=== PATIENT | male | born 1955 | race American Indian/Alaskan Native ===

== ENCOUNTER 2016-12-26 22:04 | Inpatient (IN) | payer SELFPAY ==
[2016-12-26] MEDS ORDERED: NARCAN 0.4 MG/1 ML ONE (22:27)
[2016-12-26 22:28] LABS: Hematocrit 44.1 % (35.5-45.6); Hemoglobin 13.9 gm/dl (11.8-15.2); Mean Corpuscular HGB Conc 31 % (32-34); Mean Corpuscular Hemoglobin 26 pg (28-32); Mean Corpuscular Volume 84 fl (84-94); Platelet Count 242 K/mm3 (140-440); Red Blood Count 5.27 M/mm3 (3.65-5.03); Red Cell Distribution Width 13.4 % (13.2-15.2); White Blood Count 16.1 K/mm3 (4.5-11.0)
[2016-12-26 22:41] LABS: INR 1.17 (0.87-1.13)
[2016-12-26 22:42] LABS: Partial Thromboplastin Time 24.3 Sec. (24.2-36.6)
[2016-12-26 22:48] LABS: Creatine Kinase MB 3.2 ng/mL (0.0-4.0)
[2016-12-26 22:51] LABS: Alanine Aminotransferase 70 units/L (7-56); Albumin 4.3 g/dL (3.9-5); Albumin/Globulin Ratio 1.9 %; Alkaline Phosphatase 75 units/L (35-129); BUN/Creatinine Ratio 15.83; Bilirubin,Total 0.2 mg/dL (0.1-1.2); Blood Urea Nitrogen 19 mg/dL (9-20); Calcium 8.5 mg/dL (8.4-10.2); Carbon Dioxide 23 mmol/L (22-30); Chloride 101.6 mmol/L (98-107); Creatine Kinase 185 units/L (55-170); Glucose 299 mg/dL (75-100); Potassium 4.6 mmol/L (3.6-5.0); Sodium 141 mmol/L (137-145); Total Protein 6.6 g/dL (6.3-8.2)
[2016-12-26] MEDS ORDERED: MAGNESIUM SULFATE 2GM/50ML 50 ML IV ONE (22:57)
[2016-12-26 22:59] LABS: Anion Gap 21 mmol/L
[2016-12-26 23:00] LABS: Basophils % (Manual) 0 % (0.0-1.8); Blastocytes % (Manual) 0 %; Eosinophils % (Manual) 0 % (0.0-4.3)
--- NOTE | 2016-12-26 23:00 | Emergency Department Report ---
HPI - General Chief Complaint: Overdose Time Seen by Provider: 12/26/16 22:11 - HPI HPI: This is a 61-year-old Afro-Ecuadorean male presents to the emergency department by EMS with what appears to be some altered mental status and possible respiratory distress. Allegedly the patient walked into another room in the house that he stays in and mentioned to a roommate that he was having trouble breathing before he collapsed. EMS got there and gave him some oxygen and tried some Narcan but did not get any response. At first is that he was breathing only a few times a minute but after the Narcan he began breathing very rapidly and appearing to be in more respiratory distress. Patient was mostly unresponsive at first but about 10 minutes into his ER visit he became awake and more alert. He admits to smoking crack earlier tonight. He does not realize that he passed out for 20 or 30 minutes. He currently denies any significant complaints. When asked if he has shortness of breath he says "sometimes." He denies any known diagnosed history of asthma or COPD but says "I think I probably have something like that." He is a tobacco smoker. No recent travel or sick contacts at home. He does not have a primary care doctor. ED Past Medical Hx - Past Medical History Previous Medical History?: Yes Hx Hypertension: Yes (states takes no medication for HTN) - Surgical History Past Surgical History?: Yes Additional Surgical History: left shoulder - Social History Smoking Status: Current Every Day Smoker Substance Use Type: Alcohol, Cocaine - Medications Home Medications: Home Medications Medication Instructions Recorded Confirmed Last Taken Type No Known Home Medications [No 12/27/16 12/27/16 Unknown History Reported Home Medications] ED Review of Systems ROS: Stated complaint: POSSIBLE STROKE Other details as noted in HPI Comment: Unobtainable due to pts medical conditions Respiratory: shortness of breath Neurological: confusion Physical Exam - Physical Exam Vital Signs: Vital Signs 12/26/16 12/26/16 22:13 22:31 Temperature 98.9 F Pulse Rate 111 H 115 H Respiratory 33 H 34 H Rate Blood Pressure 159/93 Blood Pressure 172/103 [Left] O2 Sat by Pulse 99 99 Oximetry Physical Exam: GENERAL: Patient is ill-appearing and unresponsive. HEENT: Normocephalic. Atraumatic. Pupils are sluggish to respond but equal. Patient has moist mucous membranes. NECK: Supple. Trachea is midline. CHEST/LUNGS: Moderate to severe wheezing throughout the chest. There is tachypnea and accessory muscle use. Patient appears in respiratory distress respiratory distress. HEART/CARDIOVASCULAR: Regular. There is mild tachycardia. There is no gallop rub or murmur. ABDOMEN: Abdomen is soft. Patient has normal bowel sounds. There is no abdominal distention. SKIN: Skin is warm and dry. NEURO: Patient is unresponsive to even painful stimuli. He does have a gag reflex. MUSCULOSKELETAL: There is no deformity. There is no evidence of acute injury. ED Course Vital Signs 12/26/16 12/26/16 22:13 22:31 Temperature 98.9 F Pulse Rate 111 H 115 H Respiratory 33 H 34 H Rate Blood Pressure 159/93 Blood Pressure 172/103 [Left] O2 Sat by Pulse 99 99 Oximetry ED Medical Decision Making - Lab Data Result diagrams: 12/26/16 22:00 12/26/16 22:00 - EKG Data -: EKG Interpreted by Me EKG shows normal: sinus rhythm, axis, intervals, QRS complexes, ST-T waves ( there is some nonspecific ST elevation to the anterior and lateral leads that appear consistent with early repolarization. No reciprocal depressions and no signs of ST elevation [place].) Rate: normal - EKG Data When compared to previous EKG there are: previous EKG unavailable - Radiology Data Radiology results: report reviewed, image reviewed interpreted by me: Chest x-ray did not show any acute process. Heart is normal shape and size. No effusions. No pneumothorax. No signs of pneumonia seen. CT of the head does not show any acute process including no hemorrhage, mass, shift, diffuse edema or skull fracture. - Medical Decision Making 61-year-old male presents in respiratory distress and unresponsive after complaining of shortness of breath to his roommate and collapsing. Patient was evaluated soon as he came in by EMS and the plan was going to be to intubate this patient. While the intubation supplies and our psychiatric were being obtained the patient was started on a DuoNeb treatment secondary to his significant bronchospasm. As soon as his treatment began the patient all of a sudden became awake and much more alert. At this point he began to have less of a respiratory distress and intubation was held off. He was reevaluated multiple times and each time his respiratory status appears to be improved and he is currently AAO 3. The patient admits to crack cocaine smoking. He presents with some elevated blood pressure and required 1 dose of hydralazine. He does have some tachycardia. Patient's labs include a negative troponin and negative d-dimer. He does have a lactic acidosis. There is some hyperglycemia but no signs of DKA or HHNK. He was given Solu-Medrol, magnesium. EKG did not show any signs of ST elevation [place]. There is some nonspecific ST elevations in the anterior to the lateral leads but there are no cervical depressions. This could be early repolarization. Pericarditis is possible but there is no depression and it is not global on the EKG. Chest x-ray does not show any pneumonia, pneumothorax, pleural effusions or any acute process. CT of the head does not show any bleed, shift, mass or any acute cranial process. Patient is feeling improved. However since the patient had a unresponsive and altered mental status episode of 30-40 minutes and has this elevated lactic acidosis with such significant bronchospasm and to begin with, the patient will be admitted to hospital for further evaluation and has been accepted for admission by the hospitalist, Dr. Garnett. - Differential Diagnosis CVA, substance abuse, PE, TX, pneumonia Critical Care Time: No Critical care attestation.: If time is entered above; I have spent that time in minutes in the direct care of this critically ill patient, excluding procedure time. ED Disposition Clinical Impression: Bronchospasm, Lactic acidosis Altered mental status Qualifiers: Altered mental status type: unspecified Qualified Code(s): R41.82 - Altered mental status, unspecified Crack cocaine overdose Qualifiers: Encounter type: initial encounter Injury intent: accidental or unintentional Qualified Code(s): T40.5X1A - Poisoning by cocaine, accidental (unintentional), initial encounter Dyspnea Qualifiers: Dyspnea type: unspecified Qualified Code(s): R06.00 - Dyspnea, unspecified Disposition: OP ADMITTED IP TO THIS HOSP Is pt being admited?: Yes Does the pt Need Aspirin: Yes Condition: Stable Time of Disposition: 01:30
[2016-12-26 23:01] LABS: Urine Drugs of Abuse Note Disclamer
[2016-12-26 23:02] LABS: Anisocytosis 1+; Diff Status Complete; Elliptocytes Few
[2016-12-26 23:11] LABS: Bacteria,Urine 1+ /HPF (Negative); Bilirubin,Urine NEG (Negative); Blood,Urine SM (Negative); Ketones,Urine NEG (Negative); Leukocyte Esterase,Urine NEG (Negative); Mucus,Urine 2+ /HPF; Nitrite,Urine NEG (Negative); Sperm,Urine 3+ /HPF (NP); Urobilinogen,Urine < 2.0 mg/dL (<2.0)
[2016-12-26] MEDS ORDERED: APRESOLINE IV ONE (23:25)
--- NOTE | 2016-12-27 00:34 | Cat Scan Report ---
FINAL REPORT EXAM: CT HEAD/BRAIN WO CON HISTORY: AMS COMPARISON: None available. TECHNIQUE: Axial images obtained skull base through vertex. FINDINGS: No acute intracranial hemorrhage, midline shift or pathologic extra axial fluid collection. Ventricles and cisterns are normal in size and configuration for the patient's age. Cheney-white differentiation preserved. Calvarium grossly intact. Mild mucosal thickening the paranasal sinuses. Mastoid air cells are clear. Visualized orbits are grossly unremarkable. IMPRESSION: No grossly acute intracranial abnormality.
[2016-12-27] MEDS ORDERED: BABY ASPIRIN PO ONE (01:31)
[2016-12-27 01:52] LABS: ISTAT Base Excess -2; ISTAT PCO2 39.7 (35-45); ISTAT PH 7.371 (7.35-7.45); ISTAT PO2 62 (80-105); ISTAT SO2 91; ISTAT TCO2 24
--- NOTE | 2016-12-27 02:05 | Admit Criteria Form ---
Admission Criteria Documentation: DRUG INGESTION OR OVERDOSE Clinical Indications for Admission to Inpatient Care ( Place 'X' for any and all applicable criteria): Admission is indicated for severe toxicity as indicated by ANY ONE of the following(1)(2)(3)(4)(5)(6): [ X]I. Inpatient admission required rather than observation care (Also use Drug Ingestion or Overdose: Observation Care guideline as appropriate) because of ANY ONE of the following: [ ]a) Altered mental status that is severe or persistent [ X]b) Clinical finding (eg, metabolic acidosis, hypoglycemia, bradycardia) that is severe or persistent [ ]c) Toxic drug level that is persistent [ ]d) Psychiatric risk status not acceptable for outpatient management [ ]e) Continuous intravenous infusion of anticoagulation, platelet inhibitor, vasoactive, or antiarrhythmic medication (15)(16) [ ]f) Other condition, treatment or monitoring requiring inpatient admission [ ]II. Respiratory abnormalities [ ]III. Specific finding indicating severe and likely prolonged drug toxicity [ ]IV. Hemodynamic instability [ ]V. Dangerous arrhythmia [ ]. Hypertension requiring inpatient treatment Extended stay beyond goal length of stay may be needed for (4): [ ]a) Neurologic or respiratory compromise [ ]b) Hemodynamic instability [ ]c) Persistent toxic drug levels (25) [ ]d) Severe drug toxicities or complications [ ]e) Ongoing antidote treatment (eg, acetaminophen overdose)(5) [ ]f) Older patients(65 years or older) The original [facility] content created by [employer] has been revised. The portions of the content which have been revised are identified through the use of italic text or in bold, and [facility] has neither reviewed nor approved the modified material. All other unmodified content is copyright [facility] [employer]. Please see references footnoted in the original [facility] [employer] edition 2016 Admission Criteria Met: Yes
--- NOTE | 2016-12-27 02:42 | History and Physical Report ---
History of Present Illness Date of examination: 12/27/16 History of present illness: 61-year-old man with a history of hypertension states he has been having upper respiratory tract infection for the last 2 weeks. He was seen at [facility] and was given 4 pills for his lungs, eye symptoms did not improve so he went back and he got steroid shot plus pills for. Been having a cough productive of yellow whitish phlegm. Yesterday he did crack cocaine, shortly after he complaining of shortness of breath and passed out, it's unclear how long he syncopized Patient denies chest pain, palpitation, cough, abdominal pain, hematochezia, dysuria, frequency, focal weakness, dysarthria, fever chills, polydipsia polyuria, hot or cold intolerance, easy bruisability, or rash or bleeding from mucosal membrane, rhinorrhea, epistaxis, earache, tinnitus, blurry vision, eye discharge, anxiety, depression. Other review of systems negative PAST SURGICAL HISTORY: Right shoulder SOCIAL HISTORY: Crack, cocaine use, no tobacco, no alcohol FAMILY HISTORY: Hypertension Medications and Allergies Allergies Allergy/AdvReac Type Severity Reaction Status Date / Time No Known Allergies Allergy Unverified 12/26/16 22:22 Home Medications Medication Instructions Recorded Confirmed Last Taken Type No Known Home Medications [No 12/27/16 12/27/16 Unknown History Reported Home Medications] Exam - Physical Exam Narrative exam: Gen. appearance: Patient lying in bed, no apparent distress HEENT: Normocephalic, atraumatic, pupils equally round and reactive to light, extraocular movement intact, and no sclericterus,. No JVD or thyromegaly or nodule,neck supple, no carotid bruit ,mucous membranes moist, no exudate or erythema Heart: S1, S2, regular rate and rhythm Lungs: Rhonchi bilaterally, breathing comfortable Abdomen: Positive bowel sounds, nontender, nondistended, no organomegaly Extremity: No edema, cyanosis, clubbing Skin: No rash, nodules, warm, dry Neuro: Oriented 3, cranial nerves II-12 intact, speech is fluent, motor and sensory intact - Constitutional Vitals: Temp Pulse Resp BP Pulse Ox 98.7 F 85 20 137/94 97 12/26/16 23:22 12/27/16 01:00 12/27/16 01:00 12/27/16 01:00 12/27/16 01:00 Results - Labs CBC & Chem 7: 12/26/16 22:00 12/26/16 22:00 Labs: Abnormal lab results 12/26/16 12/26/16 12/26/16 Range/Units 22:00 22:00 22:00 WBC 16.1 H (4.5-11.0) K/mm3 RBC 5.27 H (3.65-5.03) M/mm3 MCH 26 L (28-32) pg MCHC 31 L (32-34) % Seg Neuts % (Manual) 39.0 L (40.0-70.0) % Lymphocytes % (Manual) 49.0 H (13.4-35.0) % Monocytes % (Manual) 10.0 H (0.0-7.3) % Lymphocytes # (Manual) 7.9 H (1.2-5.4) K/mm3 Monocytes # (Manual) 1.6 H (0.0-0.8) K/mm3 INR 1.17 H (0.87-1.13) POC ABG pO2 (80-105) Glucose 299 H (75-100) mg/dL Lactic Acid (0.7-2.0) mmol/L AST 125 H (5-40) units/L ALT 70 H (7-56) units/L Total Creatine Kinase 185 H (55-170) units/L 12/26/16 12/27/16 Range/Units 22:00 01:46 WBC (4.5-11.0) K/mm3 RBC (3.65-5.03) M/mm3 MCH (28-32) pg MCHC (32-34) % Seg Neuts % (Manual) (40.0-70.0) % Lymphocytes % (Manual) (13.4-35.0) % Monocytes % (Manual) (0.0-7.3) % Lymphocytes # (Manual) (1.2-5.4) K/mm3 Monocytes # (Manual) (0.0-0.8) K/mm3 INR (0.87-1.13) POC ABG pO2 62 L (80-105) Glucose (75-100) mg/dL Lactic Acid 6.5 H* (0.7-2.0) mmol/L AST (5-40) units/L ALT (7-56) units/L Total Creatine Kinase (55-170) units/L - Imaging and Cardiology EKG: image reviewed Chest x-ray: image reviewed CT Scan - head: report reviewed Assessment and Plan Crack cocaine overdose Syncope Acute bronchitis Hypertension uncontrolled Admits medicine Start IV high-dose steroids, nebulizer treatments Check cardiac enzymes, echo, consult cardiology Start IV hydralazine as needed for blood pressure control Start DVT prophylaxis
[2016-12-27] MEDS ORDERED: APRESOLINE IV PRN (03:20)
--- NOTE | 2016-12-27 10:45 | XRay Report ---
AP CHEST :12/26/16 22:04:00 CLINICAL: Difficulty breathing. COMPARISON:None. FINDINGS: Normal heart and pulmonary vasculature. Mild aortic tortuosity. The lungs are mildly hyperexpanded and hyperlucent. No airspace disease or pleural effusion. The bones and soft tissues are normal. IMPRESSION: Mild COPD.
[2016-12-27] MEDS ORDERED: PERCOCET 5/325 PO PRN (13:17)
[2016-12-27] MEDS ORDERED: ZOFRAN IV PRN (13:17)
[2016-12-27] MEDS ORDERED: TYLENOL PO PRN (13:17)
[2016-12-27] MEDS ORDERED: DULCOLAX PR PRN (13:17)
[2016-12-27] MEDS ORDERED: MILK OF MAGNESIA PO PRN (14:29)
[2016-12-27] MEDS: LEVAQUIN 750MG/150ML 750 MG/150 ML BAG IV SCH (16:23)
--- NOTE | 2016-12-27 16:52 | Consultation ---
History of Present Illness Consult date: 12/27/16 Requesting physician: KARAN GARNETT Consult reason: syncope History of present illness: The patient is a 61 year old male with a history of hypertension who presented following a syncopal episode at home. He states that he has had a cough and been short of breath for the past 2 weeks. He was treated with antibiotics and steroids at [place]. He denies any chest pain, palpitations, orthopnea or fever. Yesterday he was at home watching TV when he became very short of breath and then collapsed. According to ER documentation, when EMS arrived the administered oxygen and Narcan but did not get any response. Upon arrival to the ER, he was mostly unresponsive at first but after about 10 minutes he became awake and more alert. In the ER he admitted to smoking crack earlier in the day. Currently he states that he feels fine. Past History Past Medical History: hypertension Past Surgical History: appendectomy Social history: denies: alcohol abuse, prescription drug abuse, IV drug use Family history: no significant family history Medications and Allergies Allergies Allergy/AdvReac Type Severity Reaction Status Date / Time No Known Allergies Allergy Unverified 12/26/16 22:22 Home Medications Medication Instructions Recorded Confirmed Last Taken Type No Known Home Medications [No 12/27/16 12/27/16 Unknown History Reported Home Medications] Active Meds: Active Medications Acetaminophen (Tylenol) 650 mg PO Q4H PRN PRN Reason: Pain MILD(1-3)/Fever >100.5/URIBE Bisacodyl (Dulcolax) 10 mg ND QDAY PRN PRN Reason: Constipation unrelieved by MOM Hydralazine HCl (Apresoline) 5 mg IV Q6HR PRN PRN Reason: Hypertension Levofloxacin/Dextrose (Levaquin 750mg/150ml) 750 mg in 150 mls @ 150 mls/hr IV Q24H [facility] Last Admin: 12/27/16 16:23 Dose: 150 mls/hr Magnesium Hydroxide (Milk Of Magnesia) 30 ml PO Q4H PRN PRN Reason: Constipation Methylprednisolone Sodium Succinate (Solu-Medrol) 125 mg IV Q6H [facility] Last Admin: 12/27/16 16:23 Dose: 125 mg Ondansetron HCl (Zofran) 4 mg IV Q8H PRN PRN Reason: N/V unrelieved by Reglan Oxycodone/Acetaminophen (Percocet 5/325) 1 tab PO Q6H PRN PRN Reason: Pain, Moderate (4-6) Review of Systems Constitutional: no fever, no chills Ears, nose, mouth and throat: no nasal congestion, no nasal discharge, no sinus pressure Cardiovascular: syncope, shortness of breath, no chest pain, no orthopnea, no palpitations Respiratory: cough, shortness of breath Gastrointestinal: no abdominal pain, no nausea, no vomiting, no diarrhea Genitourinary Male: no dysuria, no hematuria Musculoskeletal: no neck stiffness, no neck pain, no myalgias Integumentary: no rash, no pruritis Neurological: syncope, no parathesias, no numbness, no tingling Endocrine: no cold intolerance, no heat intolerance Hematologic/Lymphatic: no easy bruising, no easy bleeding Allergic/Immunologic: no urticaria, no wheezing Physical Examination Vital Signs Pulse Resp BP Pulse Ox 111 H 33 H 159/93 99 12/26/16 22:13 12/26/16 22:13 12/26/16 22:13 12/26/16 22:13 General appearance: no acute distress HEENT: Positive: Normocephaly, Mucus Membranes Moist Neck: Positive: neck supple, trachea midline Cardiac: Positive: Reg Rate and Rhythm, S1/S2 Lungs: Positive: clear to auscultation Neuro: Positive: Grossly Intact Abdomen: Positive: Soft, Active Bowel Sounds. Negative: Tender Skin: Positive: Clear. Negative: Rash Extremities: Present: normal. Absent: edema Results 12/26/16 22:00 12/26/16 22:00 - Imaging and Cardiology Echo: report reviewed (12/2016: normal LV function ) EKG: image reviewed EKG interpretations - Telemetry EKG Rhythm: Sinus Rhythm - EKG Sinus rhythms and dysrhythmias: sinus rhythm Repolarization changes or abnormalities: early repolarization (normal variant) Assessment and Plan Syncope head CT negative troponin negative Echo: normal LV function no arrhythmias noted on the monitor Elevated d-dimer recommend chest CTA to r/o PE Leukocytosis Hypertension Cocaine abuse Stable cardiac status. Given elevated d-dimer, recommend chest CTA to r/o PE. The patient has been seen in conjunction with Dr. Cobian who agrees with the assessment and plan of care. Thank you Dr. Garnett for allowing us to participate in the care of this patient.
[2016-12-27 22:46] LABS: Creatine Kinase 163 units/L (55-170)
[2016-12-28 06:15] LABS: Basophils % (Auto) 0.1 % (0.0-1.8); Hemoglobin 14.6 gm/dl (11.8-15.2); Mean Corpuscular HGB Conc 32 % (32-34); Mean Corpuscular Hemoglobin 27 pg (28-32); Mean Corpuscular Volume 82 fl (84-94); Platelet Count 224 K/mm3 (140-440); Red Cell Distribution Width 13.1 % (13.2-15.2); White Blood Count 7.7 K/mm3 (4.5-11.0)
[2016-12-28 06:31] LABS: Blood Urea Nitrogen 18 mg/dL (9-20); Calcium 9.1 mg/dL (8.4-10.2); Carbon Dioxide 23 mmol/L (22-30); Chloride 103.6 mmol/L (98-107); Glucose 174 mg/dL (75-100); Potassium 4.3 mmol/L (3.6-5.0); Sodium 140 mmol/L (137-145)
[2016-12-28 06:34] LABS: Anion Gap 18 mmol/L
--- NOTE | 2016-12-28 10:31 | Progress Note ---
Assessment and Plan Syncope head CT negative troponin negative Echo: normal LV function no arrhythmias noted on the monitor Elevated d-dimer recommend chest CTA to r/o PE Leukocytosis Hypertension Cocaine abuse Stable cardiac status. Given elevated d-dimer, recommend chest CTA to r/o PE. The patient has been seen in conjunction with Dr. Cobian who agrees with the assessment and plan of care. Subjective Date of service: 12/28/16 Principal diagnosis: syncope Interval history: The patient is resting in bed. No new complaints. Sinus rhythm on the monitor. Objective Last Vital Signs Temp 98.3 F 12/28/16 04:52 Pulse 88 12/28/16 04:52 Resp 18 12/28/16 04:52 BP 156/111 12/28/16 04:52 Pulse Ox 98 12/28/16 08:35 - Physical Examination General: No Apparent Distress HEENT: Positive: Normocephaly, Mucus Membranes Moist Neck: Positive: neck supple, trachea midline Cardiac: Positive: Reg Rate and Rhythm, S1/S2 Lungs: Positive: clear to auscultation Neuro: Positive: Grossly Intact Abdomen: Positive: Soft, Active Bowel Sounds. Negative: Tender Skin: Positive: Clear. Negative: Rash Extremities: Present: normal. Absent: edema - Labs and Meds Cardiac Enzymes 12/27/16 Range/Units 21:48 CK-MB (CK-2) 4.0 (0.0-4.0) ng/mL CBC 12/28/16 Range/Units 05:46 WBC 7.7 (4.5-11.0) K/mm3 RBC 5.50 H (3.65-5.03) M/mm3 Hgb 14.6 (11.8-15.2) gm/dl Hct 45.0 (35.5-45.6) % Plt Count 224 (140-440) K/mm3 Lymph # 1.3 (1.2-5.4) K/mm3 [place] # 0.1 (0.0-0.8) K/mm3 Eos # 0.0 (0.0-0.4) K/mm3 Baso # 0.0 (0.0-0.1) K/mm3 Comprehensive Metabolic Panel 12/28/16 Range/Units 05:46 Sodium 140 (137-145) mmol/L Potassium 4.3 (3.6-5.0) mmol/L Chloride 103.6 (98-107) mmol/L Carbon Dioxide 23 (22-30) mmol/L BUN 18 (9-20) mg/dL Creatinine 0.9 (0.8-1.5) mg/dL Glucose 174 H (75-100) mg/dL Calcium 9.1 (8.4-10.2) mg/dL - Imaging and Cardiology EKG: image reviewed Echo: report reviewed (12/2016: normal LV function ) - Telemetry EKG Rhythm: Sinus Rhythm - EKG Sinus rhythms and dysrhythmias: sinus rhythm Repolarization changes or abnormalities: early repolarization (normal variant)
[2016-12-28 12:07] VITALS: BP 136/81
--- NOTE | 2016-12-28 12:23 | Discharge Summary ---
Providers - Providers Date of Admission: 12/27/16 03:21 Attending physician: AARON GUARDADO 12/27/16 13:17 Consult to Physician [CONS] Routine Consulting Provider: ADIS LUO Reason For Exam: syncope Notified:: city secretary pl call Primary care physician: BREANNE YIP MD Hospitalization Condition: Stable Disposition: STILL A PATIENT Exam - Constitutional Vitals: Temp Pulse Resp BP Pulse Ox 97.5 F L 84 20 136/81 98 12/28/16 08:15 12/28/16 08:15 12/28/16 08:15 12/28/16 08:15 12/28/16 08:35 Plan Follow up with: PRIMARY MD PHI [Primary Care Provider] - 3-5 Days
[2016-12-28] MEDS ORDERED: NACL ONE (13:46)
--- NOTE | 2016-12-28 14:41 | Cat Scan Report ---
CTA CHEST: History: Dyspnea. Technique: Helical CT following IV contrast. Pulmonary embolus protocol. Sagittal and coronal reformatted images. Rotational MIP images. Findings: Contrast bolus is satisfactory. No pulmonary embolus is identified. Moderate centrilobular emphysematous changes are identified. The lungs are clear otherwise. The thyroid gland, tracheobronchial tree, esophagus, heart, pericardium, mediastinal vessels, and bony thorax are unremarkable. Impression: No evidence for pulmonary embolus. Emphysematous changes.
[2016-12-28] MEDS: LEVAQUIN 750MG/150ML 750 MG/150 ML BAG IV SCH (14:51)
== END 2016-12-28 16:00 | disposition home or self-care (01) | DRG 918 ==
LOC: ED 22:04 → 4A 12-27 03:21
PROVIDERS: ADMIT Internal Medicine; ATTEND Internal Medicine
DX: T40.5X1A Poisoning by cocaine, accidental (unintentional), initial encounter (principal); J20.9 Acute bronchitis, unspecified; I10 Essential (primary) hypertension; R55 Syncope and collapse; D72.829 Elevated white blood cell count, unspecified; F17.210 Nicotine dependence, cigarettes, uncomplicated; Z82.49 Family history of ischemic heart disease and other diseases of the circulatory system; Z90.49 Acquired absence of other specified parts of digestive tract; Z98.890 Other specified postprocedural states; Y92.89 Other specified places as the place of occurrence of the external cause
CPT/HCPCS: 36415; 70450; 71010; 71275; 80048; 80053; 80307; 80320; 81001; 82140; 82550; 82553; 82803; 82962; 84484; 85007; 85025; 85379; 85610; 85730; 93005; 93010; 93306; 96365; 96372; 96375; G0480; J0360; J1815; J1956; J2310; J2930; J3475; Q9967

== ENCOUNTER 2017-03-14 11:59 | Emergency (ER) | payer SELFPAY ==
[2017-03-14 12:41] LABS: Hematocrit 46.1 % (35.5-45.6); Hemoglobin 14.9 gm/dl (11.8-15.2); Mean Corpuscular HGB Conc 32 % (32-34); Mean Corpuscular Hemoglobin 27 pg (28-32); Mean Corpuscular Volume 83 fl (84-94); Platelet Count 209 K/mm3 (140-440); Red Blood Count 5.56 M/mm3 (3.65-5.03); Red Cell Distribution Width 13.9 % (13.2-15.2); White Blood Count 4.7 K/mm3 (4.5-11.0)
[2017-03-14 12:55] LABS: Anion Gap 17 mmol/L; Blood Urea Nitrogen 7 mg/dL (9-20); Calcium 9.1 mg/dL (8.4-10.2); Carbon Dioxide 25 mmol/L (22-30); Chloride 102.5 mmol/L (98-107); Glucose 110 mg/dL (75-100); Potassium 4.1 mmol/L (3.6-5.0); Sodium 140 mmol/L (137-145)
--- NOTE | 2017-03-14 13:33 | XRay Report ---
ROUTINE CHEST, TWO VIEWS: HISTORY: shortness of breath. Mild emphysematous changes are suspected. The lungs are clear. The trachea, heart, mediastinal contour, and bony thorax are unremarkable. IMPRESSION: Mild emphysematous changes.
[2017-03-14 14:02] LABS: Blastocytes % (Manual) 0 %
[2017-03-14 14:04] LABS: Diff Status Complete; RBC Morphology Normal
[2017-03-14] MEDS ORDERED: DUONEB 0.5 MG-3 MG/3 ML SOLN IH ONE ×2 (16:57→18:27)
[2017-03-14] MEDS ORDERED: DELTASONE PO ONE (16:57)
--- NOTE | 2017-03-14 17:18 | Emergency Department Report ---
ED Shortness of Breath HPI - General Chief Complaint: Dyspnea/Respdistress Stated Complaint: SOB/COUGHING Source: patient Mode of arrival: Ambulatory Limitations: No Limitations - History of Present Illness Initial Comments: 61-year-old male past medical history none presents with complaint of 2 weeks of shortness of breath which has gotten progressively worse. On exam patient has no audible stridor or wheezing. Awake alert and oriented 3. Denies any smoking no family history of heart attack in mother or father as per patient. Patient denies any chest pain and states he has been feeling slightly congested with slightly clearish sputum. Denies any fever chills nausea vomiting no abdominal pain. Denies any hemoptysis. No recent exposure to anyone with the flu. States that he lives with his mother was sick last week with cold-like symptoms. Denies any recent travel. No history of DVT or PE. MD Complaint: shortness of breath - Related Data Previous Rx's Medication Instructions Recorded Last Taken Type ALBUTEROL Inhaler [ProAir HFA 2 puff IH QID PRN #1 inhalation 03/14/17 Unknown Rx Inhaler] Azithromycin [Zithromax Z-ALEXANDER] 250 mg PO QDAY #6 tablet 03/14/17 Unknown Rx guaiFENesin DM [Robitussin Dm] 10 ml PO Q6HR PRN #1 bottle 03/14/17 Unknown Rx predniSONE [Deltasone] 40 mg PO QDAY #10 tab 03/14/17 Unknown Rx Allergies Allergy/AdvReac Type Severity Reaction Status Date / Time No Known Allergies Allergy Unverified 12/26/16 22:22 ED Review of Systems ROS: Stated complaint: SOB/COUGHING Other details as noted in HPI ED Past Medical Hx - Past Medical History Previous Medical History?: No Hx Hypertension: Yes - Surgical History Past Surgical History?: No Additional Surgical History: left shoulder - Social History Smoking Status: Never Smoker Substance Use Type: None - Medications Home Medications: Home Medications Medication Instructions Recorded Confirmed Last Taken Type ALBUTEROL Inhaler [ProAir HFA 2 puff IH QID PRN #1 inhalation 03/14/17 Unknown Rx Inhaler] Azithromycin [Zithromax Z-ALEXANDER] 250 mg PO QDAY #6 tablet 03/14/17 Unknown Rx guaiFENesin DM [Robitussin Dm] 10 ml PO Q6HR PRN #1 bottle 03/14/17 Unknown Rx predniSONE [Deltasone] 40 mg PO QDAY #10 tab 03/14/17 Unknown Rx ED Physical Exam - General Limitations: No Limitations General appearance: alert, in no apparent distress - Head Head exam: Present: atraumatic, normocephalic - Eye Eye exam: Present: normal appearance, PERRL, EOMI - ENT ENT exam: Present: mucous membranes moist - Neck Neck exam: Present: normal inspection - Respiratory Respiratory exam: Present: normal lung sounds bilaterally, decreased breath sounds - Cardiovascular Cardiovascular Exam: Present: regular rate, normal rhythm. Absent: systolic murmur, diastolic murmur, rubs, gallop - GI/Abdominal GI/Abdominal exam: Present: soft, normal bowel sounds - Rectal Rectal exam: Present: deferred - Extremities Exam Extremities exam: Present: normal inspection - Back Exam Back exam: Present: normal inspection - Neurological Exam Neurological exam: Present: alert, oriented X3, CN II-XII intact, normal gait - Psychiatric Psychiatric exam: Present: normal affect, normal mood - Skin Skin exam: Present: warm, dry, intact, normal color. Absent: rash ED Course Vital Signs 03/14/17 12:17 Temperature 98.5 F Pulse Rate 82 Blood Pressure 136/101 O2 Sat by Pulse 95 Oximetry ED Medical Decision Making - Lab Data Result diagrams: 03/14/17 12:25 03/14/17 12:25 - Medical Decision Making A/P: Mild emphysema, reactive airway disease 1-labs and d-dimer within normal limits, chest x-ray shows mild emphysematous changes 2-albuterol, prednisone course, azithromycin, guaifenesin/DM when necessary 3-follow-up with primary care and pulmonology 4-patient's O2 sat 96% before discharge, significant relief with nebulizer treatments 5-case discussed with Dr. Green before discharge Critical care attestation.: If time is entered above; I have spent that time in minutes in the direct care of this critically ill patient, excluding procedure time. ED Disposition Clinical Impression: Emphysema of lung Qualifiers: Emphysema type: unspecified Qualified Code(s): J43.9 - Emphysema, unspecified Reactive airway disease Qualifiers: Asthma severity: mild intermittent Asthma complication type: with acute exacerbation Qualified Code(s): J45.21 - Mild intermittent asthma with (acute) exacerbation Disposition: DISCHARGED TO HOME OR SELFCARE Is pt being admited?: No Does the pt Need Aspirin: No Condition: Stable Instructions: Chronic Obstructive Pulmonary Disease (ED), Emphysema (ED) Prescriptions: ALBUTEROL Inhaler [ProAir HFA Inhaler] 2 puff IH QID PRN #1 inhalation PRN Reason: Shortness Of Breath Azithromycin [Zithromax Z-ALEXANDER] 250 mg PO QDAY #6 tablet guaiFENesin DM [Robitussin Dm] 10 ml PO Q6HR PRN #1 bottle PRN Reason: Cough predniSONE [Deltasone] 40 mg PO QDAY #10 tab Referrals: HAIDER CAMPOS MD [Staff Physician] - 3-5 Days NELI SMITH MD [Staff Physician] - 3-5 Days Time of Disposition: 20:00
[2017-03-14 20:15] VITALS: BP 145/98
== END 2017-03-14 20:12 | disposition home or self-care (01) ==
LOC: ED 11:59
DX: J43.9 Emphysema, unspecified (principal); J45.21 Mild intermittent asthma with (acute) exacerbation; I10 Essential (primary) hypertension
CPT/HCPCS: 36415; 71020; 80048; 82805; 83880; 84484; 85007; 85025; 85379; 93005; 93010; 94640; 99284; J7512

== ENCOUNTER 2017-04-10 13:25 | Emergency (ER) | payer SELFPAY ==
[2017-04-10] MEDS ORDERED: DUONEB 0.5 MG-3 MG/3 ML SOLN IH ONE (16:56)
--- NOTE | 2017-04-10 18:31 | XRay Report ---
FINAL REPORT EXAM: XR CHEST ROUTINE 2V HISTORY: cough, sob TECHNIQUE: Two view chest PA and lateral PRIORS: None. FINDINGS: Cardiac and mediastinal contours are unremarkable. No focal pulmonary infiltrate is identified. No pleural fluid collection seen. Pulmonary vasculature is unremarkable. IMPRESSION: Negative two-view chest
--- NOTE | 2017-04-10 19:12 | Emergency Department Report ---
ED General Adult HPI - General Chief complaint: Upper Respiratory Infection Stated complaint: SOB/COUGHING/INSECT BITE Time Seen by Provider: 04/10/17 17:51 Source: patient, old records reviewed Mode of arrival: Ambulatory Limitations: No Limitations - History of Present Illness Initial comments: PT c/o tick bite to R axilla. PT states he pulled the tick off 3-4 days ago and he thinks the tick was attached for 2 days. PT states the day before he noticed the tick, his armpit felt sore. PT was able to remove all of the tick but his armpit is still sore. PT states he was seen 1 month ago for coughing. PT states when he finished his RXs, he felt "like a million bucks" PT states last week, he was around cigarette smoke and he started to cough again. PT states he quit smoking 4 years. MD Complaint: cough/ tick bite Onset/Timin -: Gradual, week(s) Location: chest Severity scale (0 -10): 8 Consistency: constant Improves with: medication Associated Symptoms: headaches, shortness of breath. denies: chest pain, fever/ chills, loss of appetite, nausea/vomiting - Related Data Previous Rx's Medication Instructions Recorded Last Taken Type ALBUTEROL Inhaler [ProAir HFA 2 puff IH QID PRN #1 inhalation 04/10/17 Unknown Rx Inhaler] Doxycycline [Vibramycin CAP] 100 mg PO Q12HR #14 capsule 04/10/17 Unknown Rx guaiFENesin DM [Robitussin Dm] 10 ml PO Q6HR PRN #1 bottle 04/10/17 Unknown Rx predniSONE [Deltasone] 40 mg PO QDAY 5 Days 04/10/17 Unknown Rx Allergies Allergy/AdvReac Type Severity Reaction Status Date / Time No Known Allergies Allergy Unverified 12/26/16 22:22 ED Review of Systems ROS: Stated complaint: SOB/COUGHING/INSECT BITE Other details as noted in HPI Comment: All other systems reviewed and negative Constitutional: denies: chills, fever Respiratory: cough, shortness of breath (pt reports he will have coughing fits and have + clear sputum), wheezing Cardiovascular: denies: chest pain Gastrointestinal: denies: abdominal pain Skin: other (tick bite ). denies: rash ED Past Medical Hx - Past Medical History Previous Medical History?: Yes Hx Hypertension: Yes (no b/p meds) - Surgical History Past Surgical History?: Yes Additional Surgical History: left shoulder - Social History Smoking Status: Former Smoker Substance Use Type: Alcohol - Medications Home Medications: Home Medications Medication Instructions Recorded Confirmed Last Taken Type ALBUTEROL Inhaler [ProAir HFA 2 puff IH QID PRN #1 inhalation 04/10/17 Unknown Rx Inhaler] Doxycycline [Vibramycin CAP] 100 mg PO Q12HR #14 capsule 04/10/17 Unknown Rx guaiFENesin DM [Robitussin Dm] 10 ml PO Q6HR PRN #1 bottle 04/10/17 Unknown Rx predniSONE [Deltasone] 40 mg PO QDAY 5 Days 04/10/17 Unknown Rx ED Physical Exam - General Limitations: No Limitations General appearance: alert, in no apparent distress - Head Head exam: Present: atraumatic, normocephalic, normal inspection - Eye Eye exam: Present: normal appearance, EOMI, conjunctival injection Pupils: Present: normal accommodation - ENT ENT exam: Present: normal exam, mucous membranes moist, normal external ear exam - Neck Neck exam: Present: normal inspection, full ROM. Absent: tenderness, lymphadenopathy - Respiratory Respiratory exam: Present: wheezes (josefina exp wheeze ). Absent: respiratory distress, chest wall tenderness, accessory muscle use - Cardiovascular Cardiovascular Exam: Present: regular rate, normal rhythm, normal heart sounds - Extremities Exam Extremities exam: Present: normal inspection, full ROM - Back Exam Back exam: Present: normal inspection, full ROM. Absent: tenderness - Neurological Exam Neurological exam: Present: alert, oriented X3 - Psychiatric Psychiatric exam: Present: normal affect, normal mood - Skin Skin exam: Present: warm, dry, intact, other (small tender scab to R axilla, no residual tick noted ) ED Course Vital Signs 04/10/17 04/10/17 14:27 19:44 Temperature 97.8 F Pulse Rate 69 85 Respiratory 20 18 Rate Blood Pressure 143/102 Blood Pressure 143/92 [Left] O2 Sat by Pulse 97 100 Oximetry - Reevaluation(s) Reevaluation #1: 04/10/17 19:16 PT states he is feeling better. PT's lung sounds improved, still scattered exp wheezing josefina PT aware of plan of care. No questions at this time. - Pulse Oximetry Interpretation Digit-Finger Initial Pulse Oximetry Readin Actions Taken: none ED Medical Decision Making - Radiology Data Radiology results: report reviewed CXR- NAP - Differential Diagnosis bronchitis, pna, copd, tick bite Critical Care Time: No Critical care attestation.: If time is entered above; I have spent that time in minutes in the direct care of this critically ill patient, excluding procedure time. ED Disposition Clinical Impression: Bronchospasm, Bronchitis Tick bite of axillary region Qualifiers: Encounter type: initial encounter Laterality: right Qualified Code(s): S40.861A - Insect bite (nonvenomous) of right upper arm, initial encounter Disposition: DISCHARGED TO HOME OR SELFCARE Is pt being admited?: No Does the pt Need Aspirin: No Condition: Stable Instructions: Tick Bite (ED), Acute Bronchitis (ED), Chronic Bronchitis (ED), [place] Spotted Fever (ED) Additional Instructions: AVOID DIRECT SUN EXPOSURE WHEN ON DOXY follow up with PCP in 2-3 days and have your bp rechecked Prescriptions: ALBUTEROL Inhaler [ProAir HFA Inhaler] 2 puff IH QID PRN #1 inhalation PRN Reason: Shortness Of Breath Doxycycline [Vibramycin CAP] 100 mg PO Q12HR #14 capsule guaiFENesin DM [Robitussin Dm] 10 ml PO Q6HR PRN #1 bottle PRN Reason: Cough predniSONE [Deltasone] 40 mg PO QDAY 5 Days Referrals: PRIMARY CARE,MD [Primary Care Provider] - 3-5 Days Forms: Work/School Release Form(ED) Time of Disposition: 19:22
[2017-04-10 19:44] VITALS: BP 143/92
== END 2017-04-10 19:45 | disposition home or self-care (01) ==
LOC: ED 13:25
DX: S40.861A Insect bite (nonvenomous) of right upper arm, initial encounter (principal); J98.01 Acute bronchospasm; J40 Bronchitis, not specified as acute or chronic; I10 Essential (primary) hypertension; Z87.891 Personal history of nicotine dependence; W57.XXXA Bitten or stung by nonvenomous insect and other nonvenomous arthropods, initial encounter; Y93.89 Activity, other specified; Y99.8 Other external cause status; Y92.89 Other specified places as the place of occurrence of the external cause
CPT/HCPCS: 71020; 96372; 99283; J2930

== ENCOUNTER 2017-05-28 03:14 | Emergency (ER) | payer SELFPAY ==
[2017-05-28 05:26] LABS: Hematocrit 47.7 % (35.5-45.6); Hemoglobin 15.7 gm/dl (11.8-15.2); Mean Corpuscular HGB Conc 33 % (32-34); Mean Corpuscular Hemoglobin 27 pg (28-32); Mean Corpuscular Volume 83 fl (84-94); Platelet Count 223 K/mm3 (140-440); Red Blood Count 5.78 M/mm3 (3.65-5.03); Red Cell Distribution Width 13.2 % (13.2-15.2); White Blood Count 5.7 K/mm3 (4.5-11.0)
[2017-05-28 05:44] LABS: Anion Gap 14 mmol/L; BUN/Creatinine Ratio 7.77; Blood Urea Nitrogen 7 mg/dL (9-20); Calcium 9.1 mg/dL (8.4-10.2); Carbon Dioxide 29 mmol/L (22-30); Chloride 101.2 mmol/L (98-107); Glucose 114 mg/dL (75-100); Potassium 3.9 mmol/L (3.6-5.0); Sodium 140 mmol/L (137-145)
[2017-05-28 06:24] LABS: Basophils % (Manual) 0 % (0.0-1.8); Blastocytes % (Manual) 0 %
[2017-05-28 06:28] LABS: Platelet Estimate Consistent w Auto
[2017-05-28 06:30] LABS: Diff Status Complete
--- NOTE | 2017-05-28 07:13 | XRay Report ---
CHEST XRAY, 2 VIEWS: History: Cough, chest pain, shortness of breath. Findings: There is mild diffuse interstitial coarsening. The lungs are hyperexpanded but clear. No infiltrate, pleural fluid or pneumothorax is detected. The cardiac silhouette and pulmonary vasculature are within normal limits for technique. The bony thorax is unremarkable. IMPRESSION: Changes consistent with COPD. No acute cardiopulmonary process.
[2017-05-28] MEDS ORDERED: DELTASONE PO ONE (07:21)
[2017-05-28] MEDS ORDERED: PROVENTIL IH ONE (07:21)
[2017-05-28] MEDS ORDERED: DUONEB 0.5 MG-3 MG/3 ML SOLN IH ONE ×2 (07:22→08:55)
--- NOTE | 2017-05-28 07:28 | Emergency Department Report ---
ED Chest Pain HPI - General Chief Complaint: Chest Pain Stated Complaint: SOB/CHEST TIGHTNESS/COUGHING FLEM Time Seen by Provider: 05/28/17 07:20 Source: patient Mode of arrival: Ambulatory Limitations: No Limitations - History of Present Illness Initial Comments: Patient is a 61-year-old male with a known history of COPD he is here with complaint of shortness of breath. He states he started noticing worsening shortness of breath on . He has had a recent episode of shortness of breath and required steroids approximately 3 months ago. Complains of subjective fevers and cough. Denies significant chest pain but does say he feels tight like his asthma/COPD. Complaint: other (chest tightness and shortness of breath) -: Gradual Onset: during rest, during exertion Pain Radiation: none Severity: mild Quality: tightness Improves With: rest, other (inhaler) Worsens With: nothing Other Symptoms: cough Treatments Prior to Arrival: none - Related Data Previous Rx's Medication Instructions Recorded Last Taken Type Doxycycline [Vibramycin CAP] 100 mg PO Q12HR #14 capsule 04/10/17 Unknown Rx guaiFENesin DM [Robitussin Dm] 10 ml PO Q6HR PRN #1 bottle 04/10/17 Unknown Rx predniSONE [Deltasone] 40 mg PO QDAY 5 Days 04/10/17 Unknown Rx ALBUTEROL Inhaler [ProAir HFA 2 puff IH QID PRN #1 inhalation 05/28/17 Unknown Rx Inhaler] predniSONE [Deltasone] 40 mg PO DAILY #8 tablet 05/28/17 Unknown Rx Allergies Allergy/AdvReac Type Severity Reaction Status Date / Time No Known Allergies Allergy Unverified 12/26/16 22:22 Heart Score - HEART Score History: Slightly suspicious EKG: Normal Age: 45-65 Risk factors: 1-2 risk factors Troponin: < normal limit (troponin was not checked as this patient does not have cardiac chest pain) HEART Score: 2 - Critical Actions Critical Actions: 0-3 pts:0.9-1.7%risk of adverse cardiac event.Candidate for discharge ED Review of Systems ROS: Stated complaint: SOB/CHEST TIGHTNESS/COUGHING FLEM Other details as noted in HPI Constitutional: fever. denies: chills Eyes: denies: eye pain, eye discharge, vision change Respiratory: cough, shortness of breath, SOB with exertion, SOB at rest, wheezing Cardiovascular: denies: chest pain, palpitations Gastrointestinal: denies: abdominal pain, nausea, diarrhea Musculoskeletal: denies: back pain, joint swelling, arthralgia Skin: denies: rash, lesions Neurological: denies: headache, weakness, paresthesias Psychiatric: denies: anxiety, depression ED Past Medical Hx - Past Medical History Previous Medical History?: Yes Hx Hypertension: Yes (no b/p meds) Hx Asthma: Yes Hx COPD: Yes - Surgical History Past Surgical History?: Yes Additional Surgical History: left shoulder - Social History Smoking Status: Former Smoker Substance Use Type: None - Medications Home Medications: Home Medications Medication Instructions Recorded Confirmed Last Taken Type Doxycycline [Vibramycin CAP] 100 mg PO Q12HR #14 capsule 04/10/17 Unknown Rx guaiFENesin DM [Robitussin Dm] 10 ml PO Q6HR PRN #1 bottle 04/10/17 Unknown Rx predniSONE [Deltasone] 40 mg PO QDAY 5 Days 04/10/17 Unknown Rx ALBUTEROL Inhaler [ProAir HFA 2 puff IH QID PRN #1 inhalation 05/28/17 Unknown Rx Inhaler] predniSONE [Deltasone] 40 mg PO DAILY #8 tablet 05/28/17 Unknown Rx ED Physical Exam - General Limitations: No Limitations General appearance: alert, in no apparent distress - Head Head exam: Present: atraumatic, normocephalic - Eye Eye exam: Present: normal appearance - ENT ENT exam: Present: mucous membranes moist - Neck Neck exam: Present: normal inspection - Respiratory Respiratory exam: Present: wheezes, prolonged expiratory. Absent: respiratory distress, rales, rhonchi, chest wall tenderness, accessory muscle use - Cardiovascular Cardiovascular Exam: Present: regular rate, normal rhythm. Absent: systolic murmur, diastolic murmur, rubs, gallop - GI/Abdominal GI/Abdominal exam: Present: soft, normal bowel sounds - Rectal Rectal exam: Present: deferred - Extremities Exam Extremities exam: Present: normal inspection - Back Exam Back exam: Present: normal inspection - Neurological Exam Neurological exam: Present: alert, oriented X3 - Psychiatric Psychiatric exam: Present: normal affect, normal mood - Skin Skin exam: Present: warm, dry, intact, normal color. Absent: rash ED Course Vital Signs 07/03/17 07/03/17 04:14 04:40 Temperature 98.1 F Pulse Rate 71 76 Blood Pressure 154/108 Blood Pressure 132/100 [Right] O2 Sat by Pulse 95 Oximetry MARCELINO score - Marcelino Score Age > 65: (0) No Aspirin use within the Past 7 Days: (0) No 3 or more CAD Risk Factors: (0) No 2 or more Angina events in past 24 hrs: (0) No Known CAD with more than 50% Stenosis: (0) No Elevated Cardiac Markers: (0) No ST Deviation Greater than 0.5mm: (0) No MARCELINO Score: 0 ED Medical Decision Making - Lab Data Result diagrams: 05/28/17 05:09 05/28/17 05:09 Laboratory Results - last 24 hr 05/28/17 05/28/17 05:09 05:09 WBC 5.7 RBC 5.78 H Hgb 15.7 H Hct 47.7 H MCV 83 L MCH 27 L MCHC 33 RDW 13.2 Plt Count 223 Add Manual Diff Complete Total Counted 100 Seg Neutrophils % Principal Web Developer Seg Neuts % (Manual) 26.0 L Band Neutrophils % 1.0 Lymphocytes % (Manual) 39.0 H Reactive Lymphs % (Man) 1.0 Monocytes % (Manual) 8.0 H Eosinophils % (Manual) 25.0 H Basophils % (Manual) 0 Metamyelocytes % 0 Myelocytes % 0 Promyelocytes % 0 Blast Cells % 0 Nucleated RBC % Not Reportable Seg Neutrophils # Man 1.5 L Band Neutrophils # 0.1 Lymphocytes # (Manual) 2.2 Abs React Lymphs (Man) 0.1 Monocytes # (Manual) 0.5 Eosinophils # (Manual) 1.4 H Basophils # (Manual) 0.0 Metamyelocytes # 0.0 Myelocytes # 0.0 Promyelocytes # 0.0 Blast Cells # 0.0 WBC Morphology Not Reportable Hypersegmented Neuts Not Reportable Hyposegmented Neuts Not Reportable Hypogranular Neuts Not Reportable Smudge Cells Not Reportable Toxic Granulation Not Reportable Toxic Vacuolation Not Reportable Dohle Bodies Not Reportable Pelger-Huet Anomaly Not Reportable James Rods Not Reportable Platelet Estimate Consistent w auto Clumped Platelets Not Reportable Plt Clumps, EDTA Not Reportable Large Platelets Not Reportable Giant Platelets Not Reportable Platelet Satelliting Not Reportable Plt Morphology Comment Not Reportable RBC Morphology Not Reportable Dimorphic RBCs Not Reportable Polychromasia Not Reportable Hypochromasia Not Reportable Poikilocytosis Not Reportable Anisocytosis Not Reportable Microcytosis Not Reportable Macrocytosis Not Reportable Spherocytes Not Reportable Pappenheimer Bodies Not Reportable Sickle Cells Not Reportable Target Cells Not Reportable Tear Drop Cells Not Reportable Ovalocytes Not Reportable Helmet Cells Not Reportable Gomez-Ceredo Bodies Not Reportable [place] Rings Not Reportable [place] Cells Not Reportable Bite Cells Not Reportable Crenated Cell Not Reportable Elliptocytes Not Reportable Acanthocytes (Spur) Not Reportable Rouleaux Not Reportable Hemoglobin C Crystals Not Reportable Schistocytes Not Reportable Malaria parasites Not Reportable Jet Bodies Not Reportable Hem Pathologist Commnt No Sodium 140 Potassium 3.9 Chloride 101.2 Carbon Dioxide 29 Anion Gap 14 BUN 7 L Creatinine 0.9 Estimated GFR > 60 BUN/Creatinine Ratio 7.77 Glucose 114 H Calcium 9.1 - EKG Data -: EKG Interpreted by Id - EKG Data 05/28/17 07:27 Normal sinus rhythm rate of 74 normal axis normal intervals no ST-T wave changes - Medical Decision Making Patient is a 61-year-old male with a known history of COPD/asthma here with complaints of shortness of breath. He has a mild COPD exacerbation. Plan to treat with steroids nebulizer and discharge. Patient slightly improved after first nebulizer treatment plan to give additional treatment and discharge. Portions of this chart were dictated with dictation software. There may be dictation errors contained within this note. Critical care attestation.: If time is entered above; I have spent that time in minutes in the direct care of this critically ill patient, excluding procedure time. ED Disposition Clinical Impression: COPD exacerbation Disposition: DC-01 TO HOME OR SELFCARE Is pt being admited?: No Does the pt Need Aspirin: No Condition: Stable Instructions: Chronic Obstructive Pulmonary Disease (ED) Additional Instructions: Please follow up with her regular doctor for long-term COPD management. Prescriptions: ALBUTEROL Inhaler [ProAir HFA Inhaler] 2 puff IH QID PRN #1 inhalation PRN Reason: Shortness Of Breath predniSONE [Deltasone] 40 mg PO DAILY #8 tablet Referrals: PRIMARY CARE, [Primary Care Provider] - 3-5 Days Time of Disposition: 09:44
[2017-05-28 09:55] VITALS: BP 132/68
== END 2017-05-28 09:52 | disposition home or self-care (01) ==
LOC: ED 03:14
DX: J44.1 Chronic obstructive pulmonary disease with (acute) exacerbation (principal); I10 Essential (primary) hypertension; J45.909 Unspecified asthma, uncomplicated; Z87.891 Personal history of nicotine dependence
CPT/HCPCS: 36415; 71020; 80048; 85007; 85025; 93005; 93010; 94640; 99284; J7512

== ENCOUNTER 2017-09-02 23:43 | Emergency (ER) | payer SELFPAY ==
[2017-09-03 00:29] LABS: Hemoglobin 14.6 gm/dl (11.8-15.2); Mean Corpuscular HGB Conc 32 % (32-34); Mean Corpuscular Hemoglobin 26 pg (28-32); Mean Corpuscular Volume 81 fl (84-94); Platelet Count 228 K/mm3 (140-440); Red Blood Count 5.53 M/mm3 (3.65-5.03); Red Cell Distribution Width 13.5 % (13.2-15.2); White Blood Count 7.1 K/mm3 (4.5-11.0)
[2017-09-03 00:51] LABS: Anion Gap 18 mmol/L; BUN/Creatinine Ratio 15; Blood Urea Nitrogen 15 mg/dL (9-20); Calcium 9.2 mg/dL (8.4-10.2); Carbon Dioxide 25 mmol/L (22-30); Chloride 101.8 mmol/L (98-107); Glucose 101 mg/dL (75-100); Sodium 141 mmol/L (137-145)
--- NOTE | 2017-09-03 02:03 | XRay Report ---
FINAL REPORT EXAM: XR CHEST ROUTINE 2V HISTORY: Shortness of breath COMPARISON: March 2017. FINDINGS:: Frontal and lateral views of the chest obtained. Cardiac silhouette is within normal limits. No focal consolidation or effusion. No pneumothorax. Visualized bony thorax is grossly intact. Surgical screw projects over the left scapular region. IMPRESSION:: No acute findings.
[2017-09-03 02:37] LABS: Blastocytes % (Manual) 0 %; Diff Status Complete; Platelet Estimate Consistent w Auto; RBC Morphology Normal
[2017-09-03] MEDS ORDERED: DUONEB *Not for PRN Use IH ONE (05:38)
[2017-09-03] MEDS ORDERED: DELTASONE PO ONE (07:03)
[2017-09-03] MEDS ORDERED: PROVENTIL IH ONE (08:03)
[2017-09-03] MEDS ORDERED: MOTRIN PO ONE (08:03)
[2017-09-03] MEDS ORDERED: ATROVENT IH ONE (08:03)
--- NOTE | 2017-09-03 08:04 | Emergency Department Report ---
ED General Adult HPI - General Chief complaint: Dyspnea/Respdistress Stated complaint: SHORT OF BREATH Time Seen by Provider: 09/03/17 07:02 Source: patient Mode of arrival: Ambulatory Limitations: No Limitations - History of Present Illness Initial comments: Patient is a 62-year-old male no significant past medical history who presents with cough and wheezing. That has been going on for last 2 days. Patient states that he has been coughing and wheezing now for last couple days. He states that nothing really makes it better or worse. She also states that he has some cough and subjective fever. Patient states that his headache is located in the right side of his head as a 4 out of 10 as an achy type of pain that doesn't radiate nothing makes it better or worse. Patient also states that he has had some productive cough. No blood in his mucus. Severity scale (0 -10): 0 - Related Data Previous Rx's Medication Instructions Recorded Last Taken Type Doxycycline [Vibramycin CAP] 100 mg PO Q12HR #14 capsule 04/10/17 Unknown Rx guaiFENesin DM [Robitussin Dm] 10 ml PO Q6HR PRN #1 bottle 04/10/17 Unknown Rx predniSONE [Deltasone] 40 mg PO DAILY #8 tablet 05/28/17 Unknown Rx ALBUTEROL Inhaler [ProAir HFA 2 puff IH QID PRN #1 inhalation 09/03/17 Unknown Rx Inhaler] predniSONE [Deltasone] 40 mg PO QDAY 5 Days 09/03/17 Unknown Rx Allergies Allergy/AdvReac Type Severity Reaction Status Date / Time No Known Allergies Allergy Unverified 12/26/16 22:22 ED Review of Systems ROS: Stated complaint: SHORT OF BREATH Other details as noted in HPI Constitutional: fever, weakness. denies: chills Eyes: denies: eye pain, eye discharge, vision change ENT: denies: ear pain, throat pain Respiratory: cough. denies: shortness of breath, wheezing Cardiovascular: denies: chest pain, palpitations Endocrine: no symptoms reported Gastrointestinal: denies: abdominal pain, nausea, diarrhea Genitourinary: denies: urgency, dysuria Musculoskeletal: denies: back pain, joint swelling, arthralgia Skin: denies: rash, lesions Neurological: headache. denies: weakness, paresthesias Psychiatric: denies: anxiety, depression Hematological/Lymphatic: denies: easy bleeding, easy bruising ED Past Medical Hx - Past Medical History Previous Medical History?: Yes Hx Hypertension: Yes (no b/p meds) Hx Asthma: Yes Hx COPD: Yes - Surgical History Past Surgical History?: Yes Additional Surgical History: left shoulder - Social History Smoking Status: Former Smoker Substance Use Type: None - Medications Home Medications: Home Medications Medication Instructions Recorded Confirmed Last Taken Type Doxycycline [Vibramycin CAP] 100 mg PO Q12HR #14 capsule 04/10/17 Unknown Rx guaiFENesin DM [Robitussin Dm] 10 ml PO Q6HR PRN #1 bottle 04/10/17 Unknown Rx predniSONE [Deltasone] 40 mg PO DAILY #8 tablet 05/28/17 Unknown Rx ALBUTEROL Inhaler [ProAir HFA 2 puff IH QID PRN #1 inhalation 09/03/17 Unknown Rx Inhaler] predniSONE [Deltasone] 40 mg PO QDAY 5 Days 09/03/17 Unknown Rx ED Physical Exam - General Limitations: No Limitations General appearance: alert, in no apparent distress - Head Head exam: Present: atraumatic, normocephalic - Eye Eye exam: Present: normal appearance - ENT ENT exam: Present: mucous membranes moist - Neck Neck exam: Present: normal inspection - Respiratory Respiratory exam: Present: wheezes. Absent: respiratory distress - Cardiovascular Cardiovascular Exam: Present: regular rate, normal rhythm. Absent: systolic murmur, diastolic murmur, rubs, gallop - GI/Abdominal GI/Abdominal exam: Present: soft, normal bowel sounds - Rectal Rectal exam: Present: deferred - Extremities Exam Extremities exam: Present: normal inspection - Back Exam Back exam: Present: normal inspection - Neurological Exam Neurological exam: Present: alert, oriented X3 - Psychiatric Psychiatric exam: Present: normal affect, normal mood - Skin Skin exam: Present: warm, dry, intact, normal color. Absent: rash ED Course Vital Signs 09/02/17 09/02/17 09/03/17 23:48 23:57 03:46 Temperature 97.8 F 97.8 F 97.7 F Pulse Rate 92 H 91 H 85 Respiratory 18 17 20 Rate Blood Pressure 132/98 132/98 Blood Pressure 146/102 [Right] O2 Sat by Pulse 95 95 95 Oximetry 09/03/17 09/03/17 03:47 07:20 Temperature 98.0 F Pulse Rate 75 Respiratory 20 20 Rate Blood Pressure Blood Pressure 151/104 [Right] O2 Sat by Pulse 95 95 Oximetry ED Medical Decision Making - Lab Data Result diagrams: 09/03/17 00:08 09/03/17 00:08 Lab Results 09/03/17 09/03/17 Range/Units 00:08 00:08 WBC 7.1 (4.5-11.0) K/mm3 RBC 5.53 H (3.65-5.03) M/mm3 Hgb 14.6 (11.8-15.2) gm/dl Hct 45.0 (35.5-45.6) % MCV 81 L (84-94) fl MCH 26 L (28-32) pg MCHC 32 (32-34) % RDW 13.5 (13.2-15.2) % Plt Count 228 (140-440) K/mm3 Eos % (Auto) Employee Relation Manager Add Manual Diff Complete Total Counted 100 Seg Neutrophils % Employee Relation Manager Seg Neuts % (Manual) 25.0 L (40.0-70.0) % Band Neutrophils % 0 % Lymphocytes % (Manual) 48.0 H (13.4-35.0) % Reactive Lymphs % (Man) 0 % Monocytes % (Manual) 8.0 H (0.0-7.3) % Eosinophils % (Manual) 18.0 H (0.0-4.3) % Basophils % (Manual) 1.0 (0.0-1.8) % Metamyelocytes % 0 % Myelocytes % 0 % Promyelocytes % 0 % Blast Cells % 0 % Nucleated RBC % Not Reportable Seg Neutrophils # Man 1.8 (1.8-7.7) K/mm3 Band Neutrophils # 0.0 K/mm3 Lymphocytes # (Manual) 3.4 (1.2-5.4) K/mm3 Abs React Lymphs (Man) 0.0 K/mm3 Monocytes # (Manual) 0.6 (0.0-0.8) K/mm3 Eosinophils # (Manual) 1.3 H (0.0-0.4) K/mm3 Basophils # (Manual) 0.1 (0.0-0.1) K/mm3 Metamyelocytes # 0.0 K/mm3 Myelocytes # 0.0 K/mm3 Promyelocytes # 0.0 K/mm3 Blast Cells # 0.0 K/mm3 WBC Morphology Not Reportable Hypersegmented Neuts Not Reportable Hyposegmented Neuts Not Reportable Hypogranular Neuts Not Reportable Smudge Cells Not Reportable Toxic Granulation Not Reportable Toxic Vacuolation Not Reportable Dohle Bodies Not Reportable Pelger-Huet Anomaly Not Reportable James Rods Not Reportable Platelet Estimate Consistent w auto Clumped Platelets Not Reportable Plt Clumps, EDTA Not Reportable Large Platelets Not Reportable Giant Platelets Not Reportable Platelet Satelliting Not Reportable Plt Morphology Comment Not Reportable RBC Morphology Normal Dimorphic RBCs Not Reportable Polychromasia Not Reportable Hypochromasia Not Reportable Poikilocytosis Not Reportable Anisocytosis Not Reportable Microcytosis Not Reportable Macrocytosis Not Reportable Spherocytes Not Reportable Pappenheimer Bodies Not Reportable Sickle Cells Not Reportable Target Cells Not Reportable Tear Drop Cells Not Reportable Ovalocytes Not Reportable Helmet Cells Not Reportable Gomez-Laurie Bodies Not Reportable [place] Rings Not Reportable Mcintosh Cells Not Reportable Bite Cells Not Reportable Crenated Cell Not Reportable Elliptocytes Not Reportable Acanthocytes (Spur) Not Reportable Rouleaux Not Reportable Hemoglobin C Crystals Not Reportable Schistocytes Not Reportable Malaria parasites Not Reportable Jet Bodies Not Reportable Hem Pathologist Commnt No Sodium 141 (137-145) mmol/L Potassium 4.0 (3.6-5.0) mmol/L Chloride 101.8 (98-107) mmol/L Carbon Dioxide 25 (22-30) mmol/L Anion Gap 18 mmol/L BUN 15 (9-20) mg/dL Creatinine 1.0 (0.8-1.5) mg/dL Estimated GFR > 60 ml/min BUN/Creatinine Ratio 15 % Glucose 101 H (75-100) mg/dL Calcium 9.2 (8.4-10.2) mg/dL Troponin T < 0.010 (0.00-0.029) ng/mL - EKG Data -: EKG Interpreted by Nd - EKG Data 09/03/17 08:18 Age he shows normal sinus rhythm no axis change no T-wave inversion no ST segment elevation. - Radiology Data Radiology results: report reviewed, image reviewed Chest x-ray: Shows no acute cardiopulmonary abnormalities. - Medical Decision Making Chief medical diagnosis: Viral URI Differential diagnosis: Pneumonia, thorax, bronchitis, CBC, CMP, troponin, EKG, chest x-ray, breathing treatment, oral steroids, oral analgesic medication Patient's laboratory findings are unremarkable patient's feeling better after breathing treatment also send the patient home with steroids and Tessalon Perles and follow up with PCP. Discussed plan with patient and he agrees additional verbal discharge instructions. Critical care attestation.: If time is entered above; I have spent that time in minutes in the direct care of this critically ill patient, excluding procedure time. ED Disposition Clinical Impression: Shortness of breath, Cough, Tension headache, Viral syndrome Disposition: DC- TO HOME OR SELFCARE Is pt being admited?: No Does the pt Need Aspirin: No Condition: Stable Instructions: Reactive Airways Disease (ED), Viral Syndrome (ED) Prescriptions: ALBUTEROL Inhaler [ProAir HFA Inhaler] 2 puff IH QID PRN #1 inhalation PRN Reason: Shortness Of Breath predniSONE [Deltasone] 40 mg PO QDAY 5 Days Referrals: SCAR HINDS MD [Staff Physician] - 3-5 Days
[2017-09-03 08:07] VITALS: BP 151/104
== END 2017-09-03 09:53 | disposition home or self-care (01) ==
LOC: ED 23:43
DX: B34.9 Viral infection, unspecified (principal); G44.209 Tension-type headache, unspecified, not intractable; I10 Essential (primary) hypertension; J44.9 Chronic obstructive pulmonary disease, unspecified; Z87.891 Personal history of nicotine dependence
CPT/HCPCS: 36415; 71020; 80048; 84484; 85007; 85025; 93005; 93010; 94640; 99284; J7512

== ENCOUNTER 2017-10-10 17:34 | Emergency (ER) | payer SELFPAY ==
[2017-10-10 19:19] LABS: Hematocrit 46.9 % (35.5-45.6); Hemoglobin 15.3 gm/dl (11.8-15.2); Mean Corpuscular HGB Conc 33 % (32-34); Mean Corpuscular Hemoglobin 27 pg (28-32); Mean Corpuscular Volume 84 fl (84-94); Platelet Count 214 K/mm3 (140-440); Red Cell Distribution Width 14.1 % (13.2-15.2)
[2017-10-10 19:30] LABS: Anion Gap 15 mmol/L; BUN/Creatinine Ratio 10; Blood Urea Nitrogen 10 mg/dL (9-20); Calcium 9.4 mg/dL (8.4-10.2); Carbon Dioxide 28 mmol/L (22-30); Chloride 99.7 mmol/L (98-107); Glucose 106 mg/dL (75-100); Potassium 4.1 mmol/L (3.6-5.0); Sodium 139 mmol/L (137-145)
[2017-10-10 20:46] LABS: Basophils % (Manual) 0 % (0.0-1.8); Blastocytes % (Manual) 0 %
[2017-10-10 20:53] LABS: Diff Status Complete; Platelet Estimate Consistent w Auto; RBC Morphology Normal
[2017-10-11] MEDS ORDERED: PROVENTIL IH ONE ×3 (03:15→06:54)
[2017-10-11] MEDS ORDERED: ATROVENT IH ONE ×3 (03:15→06:54)
--- NOTE | 2017-10-11 04:04 | XRay Report ---
FINAL REPORT EXAM: XR CHEST ROUTINE 2V HISTORY: Shortness of breath COMPARISON: September 02, 2017. FINDINGS:: Frontal and lateral views of the chest obtained. Cardiac silhouette is within normal limits. Mild bilateral bronchial wall thickening. Stable hyperinflation of the lungs. Increased soft tissue density bilateral perihilar regions. No focal consolidation or effusion. No pneumothorax. Visualized bony thorax is grossly intact. IMPRESSION:: Findings concerning for mild to moderate bronchitis. Small focus of pneumonia is not excluded in the perihilar regions.
[2017-10-11 09:01] VITALS: BP 121/77
--- NOTE | 2017-10-11 09:03 | Emergency Department Report ---
ED Shortness of Breath HPI - General Chief Complaint: Dyspnea/Respdistress Stated Complaint: SOB,DIZZY,AND COUGHING Time Seen by Provider: 10/11/17 06:21 Source: patient Mode of arrival: Ambulatory Limitations: No Limitations - Related Data Previous Rx's Medication Instructions Recorded Last Taken Type Doxycycline [Vibramycin CAP] 100 mg PO Q12HR #14 capsule 04/10/17 Unknown Rx guaiFENesin DM [Robitussin Dm] 10 ml PO Q6HR PRN #1 bottle 04/10/17 Unknown Rx predniSONE [Deltasone] 40 mg PO DAILY #8 tablet 05/28/17 Unknown Rx ALBUTEROL Inhaler [ProAir HFA 2 puff IH QID PRN #1 inhalation 09/03/17 Unknown Rx Inhaler] predniSONE [Deltasone] 40 mg PO QDAY 5 Days tab 09/03/17 Unknown Rx Sulfamethoxazole/Trimethoprim 1 each PO BID #20 tablet 10/11/17 Unknown Rx [Bactrim DS TAB] Allergies Allergy/AdvReac Type Severity Reaction Status Date / Time No Known Allergies Allergy Unverified 12/26/16 22:22 ED Review of Systems ROS: Stated complaint: SOB,DIZZY,AND COUGHING Other details as noted in HPI ED Past Medical Hx - Past Medical History Previous Medical History?: Yes Hx Hypertension: Yes (no b/p meds) Hx Asthma: Yes Hx COPD: Yes - Surgical History Past Surgical History?: Yes Additional Surgical History: left shoulder - Social History Smoking Status: Former Smoker Substance Use Type: None - Medications Home Medications: Home Medications Medication Instructions Recorded Confirmed Last Taken Type Doxycycline [Vibramycin CAP] 100 mg PO Q12HR #14 capsule 04/10/17 Unknown Rx guaiFENesin DM [Robitussin Dm] 10 ml PO Q6HR PRN #1 bottle 04/10/17 Unknown Rx predniSONE [Deltasone] 40 mg PO DAILY #8 tablet 05/28/17 Unknown Rx ALBUTEROL Inhaler [ProAir HFA 2 puff IH QID PRN #1 inhalation 09/03/17 Unknown Rx Inhaler] predniSONE [Deltasone] 40 mg PO QDAY 5 Days tab 09/03/17 Unknown Rx Sulfamethoxazole/Trimethoprim 1 each PO BID #20 tablet 10/11/17 Unknown Rx [Bactrim DS TAB] ED Physical Exam - General Limitations: No Limitations ED Course Vital Signs 10/10/17 10/11/17 10/11/17 18:23 00:34 03:29 Temperature 98.1 F 98 F Pulse Rate 86 92 H Pulse Rate [ 84 Anterior Bilateral Throughout] Respiratory 26 H 22 Rate Respiratory 20 Rate [Anterior Bilateral Throughout] Blood Pressure 144/103 Blood Pressure 144/98 [Left] O2 Sat by Pulse 93 100 Oximetry 10/11/17 10/11/17 10/11/17 04:00 04:46 05:00 Temperature Pulse Rate 78 Pulse Rate [ Anterior Bilateral Throughout] Respiratory 20 Rate Respiratory Rate [Anterior Bilateral Throughout] Blood Pressure 136/102 Blood Pressure 142/89 [Left] O2 Sat by Pulse 99 97 97 Oximetry - Reevaluation(s) Reevaluation #1: 10/11/17 09:02 see downtime sheet for history and physical ED Medical Decision Making - Lab Data Result diagrams: 10/10/17 18:55 10/10/17 18:55 Critical care attestation.: If time is entered above; I have spent that time in minutes in the direct care of this critically ill patient, excluding procedure time. ED Disposition Clinical Impression: Bronchitis Disposition: DC-01 TO HOME OR SELFCARE Is pt being admited?: No Does the pt Need Aspirin: No Condition: Stable Instructions: Chronic Bronchitis (ED) Additional Instructions: return sooner if worse or if further concerns; Avoid smoke exposure where possible; have the EPA services look into mold in your house Prescriptions: Sulfamethoxazole/Trimethoprim [Bactrim DS TAB] 1 each PO BID #20 tablet Referrals: PRIMARY CARE, [Primary Care Provider] - 3-5 Days
== END 2017-10-11 09:26 | disposition home or self-care (01) ==
LOC: ED 17:34
DX: J40 Bronchitis, not specified as acute or chronic (principal); I10 Essential (primary) hypertension; J45.909 Unspecified asthma, uncomplicated; J44.9 Chronic obstructive pulmonary disease, unspecified; Z87.891 Personal history of nicotine dependence
CPT/HCPCS: 36415; 71020; 80048; 84484; 85007; 85025; 93005; 93010; 94640; 96372; 99284; J2930